=== PATIENT | male | born 1950 | race Caucasian/White ===

== ENCOUNTER 2022-07-08 12:24 | Outpatient (REF) | payer MEDICARE, SELFPAY ==
[2022-07-08 15:23] LABS: Vitamin B12 441 pg/mL (200-900)
== END 2022-07-08 12:25 | disposition home or self-care (01) ==
LOC: HO.LAB 12:24
PROVIDERS: PCP Internal Medicine; Visit Provider Psychiatry & Neurology Neurology
DX: G31.84 Mild cognitive impairment of uncertain or unknown etiology (principal)
CPT/HCPCS: 36415; 82607